=== PATIENT | female | born 1990 | race Caucasian/White ===

== ENCOUNTER 2019-01-05 08:16 | Emergency (ER) | payer MEDICAID ==
[~2019-01-05] VITALS: Ht 157.5 cm; Wt 84.0 kg
[2019-01-05 08:21] VITALS: BP 147/93
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
== END 2019-01-05 09:54 | disposition home or self-care (01) ==
LOC: ED 08:49
DX: S06.0X0A Concussion without loss of consciousness, initial encounter (principal); X58.XXXA Exposure to other specified factors, initial encounter; Y93.89 Activity, other specified; Y92.89 Other specified places as the place of occurrence of the external cause; Y99.8 Other external cause status
CPT/HCPCS: 99283

== ENCOUNTER 2019-01-11 16:29 | Emergency (ER) | payer MEDICAID ==
[~2019-01-11] VITALS: Ht 157.5 cm; Wt 81.9 kg
[2019-01-11 16:32] VITALS: BP 163/99
[2019-01-11 17:02] LABS: BASOPHILS # (AUTO) 0.11 x10^3/uL (0-0.1); BASOPHILS % (AUTO) 1 % (0-1); EOSINOPHILS # (AUTO) 0.27 x10^3/uL (0-0.4); EOSINOPHILS % (AUTO) 2 % (1-7); LYMPHOCYTES # (AUTO) 2.84 x10^3/uL (1-3.4); LYMPHOCYTES % (AUTO) 25 % (22-44); MD NO; MEAN CORPUSCULAR HGB CONC 32.9 g/dL (32.4-35.8); MEAN CORPUSCULAR VOLUME 88.1 fL (80-100); MEAN PLATELET VOLUME 9.1 fL (7.4-10.4); MONOCYTES # (AUTO) 0.77 x10^3/uL (0.2-0.8); MONOCYTES % (AUTO) 7 % (2-9); NEUTROPHILS % (AUTO) 65 % (42-75); PLATELET COUNT 400 x10^3/uL (130-400); RED BLOOD COUNT 4.87 x10^6/uL (3.82-5.3); RED CELL DISTRIBUTION WIDTH 13.4 % (9.6-15.2)
[2019-01-11 17:11] LABS: ALBUMIN 3.8 g/dL (3.4-5.0); ANION GAP 7 mmol/L (5-15); CALCIUM 8.5 mg/dL (8.5-10.1); CHLORIDE 110 mmol/L (98-107)
--- NOTE | 2019-01-11 17:41 | NUR ---
FROM LOBBY TO ROOM AT THIS TIME
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
== END 2019-01-11 19:24 | disposition left against medical advice (07) ==
LOC: ED 19:18
DX: S19.9XXA Unspecified injury of neck, initial encounter (principal); Y04.8XXA Assault by other bodily force, initial encounter; Y93.89 Activity, other specified; Y92.410 Unspecified street and highway as the place of occurrence of the external cause; Y99.8 Other external cause status
CPT/HCPCS: 36415; 70360; 80048; 82040; 85025; 99284

== ENCOUNTER 2019-02-28 11:50 | Emergency (ER) | payer MEDICAID ==
[~2019-02-28] VITALS: Ht 157.5 cm; Wt 83.7 kg
[2019-02-28 12:09] VITALS: BP 146/83
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
== END 2019-02-28 12:39 | disposition home or self-care (01) ==
LOC: ED 12:33
DX: S16.1XXA Strain of muscle, fascia and tendon at neck level, initial encounter (principal); F41.1 Generalized anxiety disorder; F17.200 Nicotine dependence, unspecified, uncomplicated; R06.02 Shortness of breath; Y08.89XA Assault by other specified means, initial encounter; Y93.89 Activity, other specified; Y92.89 Other specified places as the place of occurrence of the external cause; Y99.8 Other external cause status
CPT/HCPCS: 99283

== ENCOUNTER 2019-04-09 08:39 | Emergency (ER) | payer MEDICAID ==
[~2019-04-09] VITALS: Ht 157.5 cm; Wt 84.0 kg
[2019-04-09 09:35] LABS: MICROSCOPIC INDICATED
[2019-04-09 09:38] LABS: BASOPHILS # (AUTO) 0.07 x10^3/uL (0-0.1); BASOPHILS % (AUTO) 1 % (0-1); EOSINOPHILS # (AUTO) 0.29 x10^3/uL (0-0.4); EOSINOPHILS % (AUTO) 3 % (1-7); LYMPHOCYTES # (AUTO) 1.83 x10^3/uL (1-3.4); LYMPHOCYTES % (AUTO) 18 % (22-44); MD NO; MEAN CORPUSCULAR HEMOGLOBIN 29.2 pg (27.0-34.8); MEAN CORPUSCULAR HGB CONC 32.9 g/dL (32.4-35.8); MEAN CORPUSCULAR VOLUME 88.7 fL (80-100); MEAN PLATELET VOLUME 8.8 fL (7.4-10.4); MONOCYTES # (AUTO) 0.66 x10^3/uL (0.2-0.8); MONOCYTES % (AUTO) 6 % (2-9); NEUTROPHILS % (AUTO) 73 % (42-75); PLATELET COUNT 348 x10^3/uL (130-400); RED BLOOD COUNT 4.74 x10^6/uL (3.82-5.3); RED CELL DISTRIBUTION WIDTH 13.8 % (9.6-15.2)
[2019-04-09 09:45] LABS: CULTURE INDICATED? YES
[2019-04-09] MEDS ORDERED: MAALOX/HYOSCYAMINE/LIDOCAINE 45 ML BTL ONE (09:49)
[2019-04-09 09:50] LABS: ALANINE AMINOTRANSFERASE 29 U/L (12-78); ALBUMIN 3.8 g/dL (3.4-5.0); CALCIUM 8.7 mg/dL (8.5-10.1)
--- NOTE | 2019-04-09 09:54 | NUR ---
PT TO ED FOR RUQ PAIN WITH ASOCIATED NAUSEA, WORSE AFTER EATING, STARTING YESTERDAY MORNING AFTER BREAFAST. DENIES VOMITING. HX GERD. PT CONNECTED TO MONITORS. VSS. AWAITING EDMD ASSESSMENT.
[2019-04-09 09:55] LABS: ALKALINE PHOSPHATASE 92 U/L (45-117); ANION GAP 8 mmol/L (5-15); BILIRUBIN,TOTAL 0.5 mg/dL (0.2-1.0); TOTAL PROTEIN 7.5 g/dL (6.4-8.2)
[2019-04-09 10:00] LABS: CHLORIDE 114 mmol/L (98-107)
[2019-04-09] MEDS ORDERED: MAALOX/HYOSCYAMINE/LIDOCAINE 45 ML BTL PO ONE (10:00)
--- NOTE | 2019-04-09 10:00 | NUR ---
us to bs.
[2019-04-09 10:43] VITALS: BP 122/83
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
--- NOTE | 2019-04-09 11:06 | NUR ---
Patient/Caregiver given discharge instructions and they have confirmed that they understand the instructions. Patient ambulatory with steady gait.
== END 2019-04-09 11:07 | disposition home or self-care (01) ==
LOC: ED 10:29
DX: K29.00 Acute gastritis without bleeding (principal); E11.9 Type 2 diabetes mellitus without complications; F17.210 Nicotine dependence, cigarettes, uncomplicated
CPT/HCPCS: 36415; 76700; 80053; 81001; 83690; 84703; 85025; 87086; 99406

== ENCOUNTER 2019-04-23 10:02 | Emergency (ER) | payer MEDICAID ==
[~2019-04-23] VITALS: Ht 157.5 cm; Wt 77.3 kg
[2019-04-23 10:05] VITALS: BP 147/90
== END 2019-04-23 11:14 | disposition home or self-care (01) ==
LOC: ED 10:21
DX: M54.5 Low back pain (principal); M54.6 Pain in thoracic spine; F17.200 Nicotine dependence, unspecified, uncomplicated; E11.9 Type 2 diabetes mellitus without complications; F41.1 Generalized anxiety disorder; F43.10 Post-traumatic stress disorder, unspecified
CPT/HCPCS: 81003; 96372; 99283; J1885

== ENCOUNTER 2019-08-22 09:27 | Emergency (ER) | payer MEDICAID ==
[~2019-08-22] VITALS: Ht 157.5 cm; Wt 71.3 kg
[2019-08-22 09:42] VITALS: BP 116/86
--- NOTE | 2019-08-22 10:00 | NUR ---
PT WALKED BACK FROM LOBBY TO ROOM AT THIS TIME. STEADY UPON AMBULATION.
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
[2019-08-22] MEDS ORDERED: HYDR10TA4 PO (10:05)
[2019-08-22] MEDS ORDERED: CLON0.1T2 PO (10:05)
[2019-08-22] MEDS ORDERED: PRAZ1CAP2 PO (10:06)
[2019-08-22] MEDS ORDERED: SUCR1ORA5 PO (10:06)
--- NOTE | 2019-08-22 12:15 | NUR ---
Patient/Caregiver given discharge instructions and they have confirmed that they understand the instructions. Patient ambulatory with steady gait.
== END 2019-08-22 12:18 | disposition home or self-care (01) ==
LOC: ED 12:00
DX: M25.511 Pain in right shoulder (principal); E11.9 Type 2 diabetes mellitus without complications; M79.601 Pain in right arm
CPT/HCPCS: 99284

== ENCOUNTER 2019-09-02 08:19 | Emergency (ER) | payer MEDICAID ==
[~2019-09-02] VITALS: Ht 157.5 cm; Wt 71.2 kg
[~2019-09-02 08:19] MED LIST: CLON0.1T2 PO; HYDR10TA4 PO; PRAZ1CAP2 PO; SUCR1ORA5 PO
[2019-09-02 08:37] VITALS: BP 113/82
--- NOTE | 2019-09-02 08:57 | NUR ---
REPORT FROM FELISA. PT HAS BEEN CONSTIPATED FOR 1 WEEK PER PT. HAS NOT TRIED ANY OTC MEDICATIONS TO ASSIST W CONSTIPATION.
--- NOTE | 2019-09-02 09:08 | NUR ---
PT AMBULATED TO XRAY
[2019-09-02] MEDS ORDERED: MAGNESIUM CITRATE 300ML ORAL SOL ONE (09:44)
--- NOTE | 2019-09-02 09:47 | NUR ---
EDUCATED PT ABOUT MAG CITRATE. PT HAS NO FURTHER QUESTIONS.
[2019-09-02] MEDS ORDERED: MAGNESIUM CITRATE 300ML ORAL SOL PO ONE (10:00)
--- NOTE | 2019-09-02 11:02 | NUR ---
Patient given discharge instructions and they have confirmed that they understand the instructions. Patient ambulatory with steady gait.
== END 2019-09-02 11:04 | disposition home or self-care (01) ==
LOC: ED 09:14
DX: K59.00 Constipation, unspecified (principal); I10 Essential (primary) hypertension; E11.9 Type 2 diabetes mellitus without complications
CPT/HCPCS: 74021; 99283

== ENCOUNTER 2020-01-04 15:25 | Emergency (ER) | payer MEDICAID ==
[~2020-01-04] VITALS: Ht 157.5 cm; Wt 76.1 kg
[~2020-01-04 15:25] MED LIST changes: +HYDR-2995 PO; -HYDR10TA4 PO
[2020-01-04 15:26] VITALS: BP 119/73
--- NOTE | 2020-01-04 15:38 | NUR ---
PT STATES BEEN HAVING "SMALL" BMS OVER THE PAST COUPLE DAYS. PT STATES THIS IS NOT NORMAL FOR HER. STATES SHE USUSALLY GOES TWO TIMES A DAY AND STOOL IS MEDIUM SIZE. PT ALSO STATES INCREASE "GAS."
== END 2020-01-04 16:04 | disposition home or self-care (01) ==
LOC: ED 15:45
DX: K59.00 Constipation, unspecified (principal); R10.33 Periumbilical pain; I10 Essential (primary) hypertension
CPT/HCPCS: 99282

== ENCOUNTER 2020-01-08 12:02 | Emergency (ER) | payer MEDICAID ==
[~2020-01-08] VITALS: Ht 157.5 cm; Wt 75.0 kg
[2020-01-08 12:05] VITALS: BP 138/88
--- NOTE | 2020-01-08 13:47 | NUR ---
COLD WORKING SUPERVISOR: NIL X1
--- NOTE | 2020-01-08 14:20 | NUR ---
AUTO BODY SHOP MANAGER: CALLED PT NO ANSWER
--- NOTE | 2020-01-08 14:41 | NUR ---
no answer in lobby
== END 2020-01-08 14:49 | disposition left against medical advice (07) ==
LOC: ED 14:43
DX: K59.00 Constipation, unspecified (principal)
CPT/HCPCS: 99281

== ENCOUNTER 2020-10-01 14:01 | Emergency (ER) | payer MEDICAID ==
[~2020-10-01] VITALS: Ht 157.5 cm; Wt 85.2 kg
[2020-10-01] MEDS ORDERED: KETOROLAC 30 MG/1 ML ONE (15:50)
[2020-10-01] MEDS ORDERED: KETOROLAC 30 MG/1 ML IM ONE (16:00)
[2020-10-01 16:41] VITALS: BP 145/80
== END 2020-10-01 16:41 ==
LOC: ED 16:22
DX: S60.212A Contusion of left wrist, initial encounter (principal); S50.01XA Contusion of right elbow, initial encounter; W01.0XXA Fall on same level from slipping, tripping and stumbling without subsequent striking against object, initial encounter; I10 Essential (primary) hypertension; F17.210 Nicotine dependence, cigarettes, uncomplicated; Y93.89 Activity, other specified; Y92.410 Unspecified street and highway as the place of occurrence of the external cause; Y99.8 Other external cause status
CPT/HCPCS: 29125; 73080; 73110; 73130; 96372; 99284; J1885

== ENCOUNTER 2020-10-27 12:58 | Emergency (ER) | payer MEDICAID ==
[~2020-10-27] VITALS: Ht 157.5 cm; Wt 84.5 kg
[2020-10-27 13:14] VITALS: BP 120/81
--- NOTE | 2020-10-27 13:34 | NUR ---
MOTORCOACH OPERATOR: PT AMBULATORY TO ROOM WITH STEADY GAIT AT THIS TIME FROM LOBBY, ACCOMPANIED BY SIGNIFICANT OTHER AND DIRECTOR ATHLETIC
--- NOTE | 2020-10-27 13:55 | NUR ---
PT EDUCATED ON ALTERNATING OTC TYLENOL AND IBUPROFEN WHEN HAVING PAIN IN RIGHT THIGH. PT EDUCATED ON S/SX OF CONSTIPATION AND STOOL SOFTENERS. SPOUSE AT BEDSIDE. AWAITING ORDERS.
== END 2020-10-27 14:26 | disposition home or self-care (01) ==
LOC: ED 14:00
DX: S70.11XA Contusion of right thigh, initial encounter (principal); K59.00 Constipation, unspecified; E11.9 Type 2 diabetes mellitus without complications; I10 Essential (primary) hypertension; X58.XXXA Exposure to other specified factors, initial encounter; Y93.89 Activity, other specified; Y92.098 Other place in other non-institutional residence as the place of occurrence of the external cause; Y99.8 Other external cause status
CPT/HCPCS: 99282

== ENCOUNTER 2021-03-28 09:26 | Emergency (ER) | payer MEDICAID ==
[~2021-03-28] VITALS: Ht 157.5 cm; Wt 86.9 kg
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
[2021-03-28] MEDS ORDERED: abilify PO (09:50)
[2021-03-28] MEDS ORDERED: MAALOX/HYOSCYAMINE/LIDOCAINE 45 ML BTL ONE (10:25)
--- NOTE | 2021-03-28 10:29 | NUR ---
medicated per eMAR. Discussed need for UA, pt verablized understanding. U/S at bedside.
[2021-03-28] MEDS ORDERED: MAALOX/HYOSCYAMINE/LIDOCAINE 45 ML BTL PO ONE (10:30)
[2021-03-28 11:13] LABS: MEAN CORPUSCULAR HEMOGLOBIN 29.7 pg (27.0-34.8); MEAN CORPUSCULAR HGB CONC 34.9 g/dL (32.4-35.8); MEAN PLATELET VOLUME 8.3 fL (7.4-10.4); PLATELET COUNT 435 x10^3/uL (130-400); RED BLOOD COUNT 4.99 x10^6/uL (3.82-5.3); RED CELL DISTRIBUTION WIDTH 13.4 % (9.6-15.2)
[2021-03-28 11:14] LABS: MICROSCOPIC NOT IND
[2021-03-28 11:25] LABS: ALANINE AMINOTRANSFERASE 40 U/L (12-78); ALBUMIN 3.2 g/dL (3.4-5.0); ANION GAP 10 mmol/L (5-15); CALCIUM 8.7 mg/dL (8.5-10.1); CHLORIDE 101 mmol/L (98-107); CREATININE 0.78 mg/dL (0.55-1.02)
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
[2021-03-28 11:29] LABS: ALKALINE PHOSPHATASE 88 U/L (45-117); BILIRUBIN,TOTAL 0.2 mg/dL (0.2-1.0); TOTAL PROTEIN 7.8 g/dL (6.4-8.2)
[2021-03-28 11:32] LABS: <PLATELET ESTIMATE> INCREASED; <PLT MORPHOLOGY> NORMAL PLT MORPH; <RBC MORPHOLOGY> NORMAL; EOS#(MANUAL) 0.11 x10^3/uL (0.0-0.4); EOS% (MANUAL) 1 % (1-7); LYMPH#(MANUAL) 2.05 x10^3/uL (1-3.4); LYMPHS% (MANUAL) 18 % (22-44); MONOS#(MANUAL) 0.46 x10^3/uL (0.3-2.7); MONOS% (MANUAL) 4 % (2-9); REACTIVE LYMPHS # (MANUAL) 0.68 x10^3/uL (0-0); REACTIVE LYMPHS % (MANUAL) 6 % (0-0); SEG#(MANUAL) 8.09 x10^3/uL (1.8-6.8); SEGS% (MANUAL) 71 % (42-75)
[2021-03-28] MEDS ORDERED: ONDANSETRON ODT 4 MG ONE (12:11)
[2021-03-28] MEDS ORDERED: POTASSIUM CHLORIDE 20 MEQ TAB.ER.PRT ONE (12:11)
[2021-03-28] MEDS ORDERED: ONDANSETRON 4 MG TABLET PO ONE (12:30)
[2021-03-28] MEDS ORDERED: POTASSIUM CHLORIDE 20 MEQ TAB.ER.PRT PO ONE (12:30)
[2021-03-28 12:44] VITALS: BP 121/89
--- NOTE | 2021-03-28 12:46 | NUR ---
Patient/Caregiver given discharge instructions and they have confirmed that they understand the instructions. Patient ambulatory with steady gait. NAD, all questions answered appropriately, denies additional needs at this time. No personal belongings left in room after discharge.
== END 2021-03-28 12:47 | disposition home or self-care (01) ==
LOC: ED 10:09
DX: K29.00 Acute gastritis without bleeding (principal); E87.6 Hypokalemia; R00.0 Tachycardia, unspecified; I10 Essential (primary) hypertension; E11.9 Type 2 diabetes mellitus without complications; F17.200 Nicotine dependence, unspecified, uncomplicated; Z88.2 Allergy status to sulfonamides; Z91.040 Latex allergy status; Z88.1 Allergy status to other antibiotic agents; Z88.8 Allergy status to other drugs, medicaments and biological substances
CPT/HCPCS: 36415; 76700; 80053; 81003; 83690; 84703; 85025; 93005; 99285; Q0162

== ENCOUNTER 2021-06-12 10:15 | Emergency (ER) | payer MEDICAID ==
[~2021-06-12] VITALS: Ht 157.5 cm; Wt 88.2 kg
[~2021-06-12 10:15] MED LIST changes: +abilify PO
[2021-06-12 10:17] VITALS: BP 142/91
== END 2021-06-12 13:10 | disposition home or self-care (01) ==
LOC: ED 13:00
DX: S53.401A Unspecified sprain of right elbow, initial encounter (principal); E11.9 Type 2 diabetes mellitus without complications; I10 Essential (primary) hypertension; Z88.5 Allergy status to narcotic agent; Z88.8 Allergy status to other drugs, medicaments and biological substances; Z88.1 Allergy status to other antibiotic agents; W18.30XA Fall on same level, unspecified, initial encounter; Y93.89 Activity, other specified; Y92.89 Other specified places as the place of occurrence of the external cause; Y99.8 Other external cause status
CPT/HCPCS: 99283